=== PATIENT | female | born 1965 | race Caucasian/White ===

== ENCOUNTER → 2017-05-05 | Outpatient (CLI) | payer OTHER | LOC: M SFHCSACK 11:51 | PROVIDERS: ATTEND Physician Assistant | DX: R76.11 Nonspecific reaction to tuberculin skin test without active tuberculosis (principal) ==

== ENCOUNTER → 2021-11-04 | Outpatient (REF) | payer OTHER | LOC: M LAB REF 16:02 | PROVIDERS: ATTEND Internal Medicine | DX: G25.81 Restless legs syndrome (principal); M19.90 Unspecified osteoarthritis, unspecified site ==

== ENCOUNTER → 2022-02-17 | Outpatient (REF) | payer BC ==
[2022-02-17 18:29] LABS: C REACTIVE PROTEIN QUANTITATIV < 0.30 MG/DL (0.00-0.30); FERRITIN 78 NG/ML (8-252)
[2022-02-17 18:46] LABS: VITAMIN B12 LEVEL 405 PG/ML (247-911)
== END ==
LOC: M LAB REF 16:23
PROVIDERS: ATTEND Internal Medicine
DX: M79.10 Myalgia, unspecified site (principal); Z11.59 Encounter for screening for other viral diseases

== ENCOUNTER → 2023-01-02 | Outpatient (REF) | payer OTHER | LOC: M LAB REF 16:30 | PROVIDERS: ATTEND Internal Medicine | DX: R74.01 Elevation of levels of liver transaminase levels (principal) ==

== ENCOUNTER → 2023-01-23 | Outpatient (CLI) | payer OTHER | LOC: M WHC 10:41 | PROVIDERS: ATTEND Internal Medicine | DX: N63.31 Unspecified lump in axillary tail of the right breast (principal) ==

== ENCOUNTER → 2023-02-27 | Outpatient (CLI) | payer OTHER | LOC: M WHC 10:50 | PROVIDERS: ATTEND Internal Medicine | DX: Z12.31 Encounter for screening mammogram for malignant neoplasm of breast (principal); Z13.820 Encounter for screening for osteoporosis; M85.88 Other specified disorders of bone density and structure, other site ==

== ENCOUNTER → 2023-12-07 | Outpatient (REF) | payer OTHER | LOC: M LAB REF 13:16 | PROVIDERS: ATTEND Internal Medicine | DX: M54.50 Low back pain, unspecified (principal) ==

== ENCOUNTER → 2024-07-02 | Outpatient (REF) | payer OTHER | LOC: M LAB REF 13:06 | PROVIDERS: ATTEND Internal Medicine | DX: R74.01 Elevation of levels of liver transaminase levels (principal) ==

== ENCOUNTER → 2025-01-30 | Outpatient (REF) | payer OTHER ==
[2025-01-30 15:05] LABS: C REACTIVE PROTEIN QUANTITATIV < 0.50 MG/DL (<1.0)
[2025-02-03 15:03] LABS: LYME TOTAL ANTIBODY CIA <= 0.90 Index (<=0.90)
== END ==
LOC: M LAB REF 13:43
PROVIDERS: ATTEND Internal Medicine
DX: R22.42 Localized swelling, mass and lump, left lower limb (principal)

== ENCOUNTER → 2025-01-30 | Outpatient (CLI) | payer OTHER | LOC: M RAD 11:54 | PROVIDERS: ATTEND Internal Medicine | DX: R22.42 Localized swelling, mass and lump, left lower limb (principal) ==

== ENCOUNTER → 2025-03-13 | Outpatient (REF) | payer OTHER | LOC: M LAB REF 17:19 | PROVIDERS: ATTEND Internal Medicine | DX: R22.42 Localized swelling, mass and lump, left lower limb (principal) ==

== ENCOUNTER → 2025-04-03 | Outpatient (CLI) | payer OTHER | LOC: M WHC 10:43 | PROVIDERS: ATTEND Internal Medicine | DX: Z12.31 Encounter for screening mammogram for malignant neoplasm of breast (principal); M81.0 Age-related osteoporosis without current pathological fracture ==

== ENCOUNTER → 2025-04-03 | Outpatient (CLI) | payer OTHER | LOC: M PLALAB 10:48 | PROVIDERS: ATTEND Internal Medicine | DX: M51.360 Other intervertebral disc degeneration, lumbar region with discogenic back pain only (principal) ==

== ENCOUNTER → 2025-06-03 | Outpatient (REF) | payer OTHER | LOC: M LAB REF 17:24 | PROVIDERS: ATTEND Internal Medicine | DX: E55.9 Vitamin D deficiency, unspecified (principal); M85.80 Other specified disorders of bone density and structure, unspecified site; G25.81 Restless legs syndrome ==